=== PATIENT | female | born 1970 | race Caucasian/White ===

== ENCOUNTER 2022-11-08 09:39 | Emergency (ER) | payer OTHER ==
--- NOTE | 2022-11-08 09:45 | ERPHSYRPT ---
- History of Present Illness Time Seen by Provider: 11/08/22 09:45
[2022-11-08] MEDS ORDERED: MOTRIN 600 MG ONE (10:38)
--- NOTE | 2022-11-08 13:15 | XRAY ---
Indication: Pain following fall. Comparison: None 3 view right wrist demonstrates tiny hairline cortical fracture distal radius, best seen on oblique view. Incidental radiocarpal joint space narrowing. No other bony, articular, or soft tissue abnormalities.
--- NOTE | 2022-11-08 13:15 | XRAY ---
Indication: Pain following fall. Comparison: None 3 view right hand demonstrates tiny cortical fracture distal radius reported separately. No other bony, articular, or soft tissue abnormalities.
--- NOTE | 2022-11-08 13:16 | XRAY ---
Indication: Pain following fall. Comparison: None 2 view right forearm tiny hairline cortical fracture distal radius. No other bony, articular, or soft tissue abnormalities.
== END 2022-11-08 11:23 | disposition home or self-care (01) ==
LOC: ED 09:39
DX: S52.501A Unspecified fracture of the lower end of right radius, initial encounter for closed fracture (principal); W01.0XXA Fall on same level from slipping, tripping and stumbling without subsequent striking against object, initial encounter; Y99.0 Civilian activity done for income or pay; Z72.0 Tobacco use
CPT/HCPCS: 73090; 73110; 73130; 99282; L3908; A9270-GY